=== PATIENT | male | born 1980 | race Caucasian/White ===

== ENCOUNTER 2017-03-23 10:30 | Outpatient (CLI) | payer OTHER ==
--- NOTE | 2017-03-23 17:03 | XRAY Report ---
TWO VIEW CHEST: 03/23/2017 CLINICAL INDICATION: Wheezing. Frontal and lateral views of the chest demonstrate a normal cardiac silhouette. The lungs are clear. No effusion or pneumothorax is present. IMPRESSION: NORMAL CHEST. JOB #: [id number] EXT JOB #:[id number]
== END 2017-03-23 10:31 | disposition home or self-care (01) ==
LOC: DI 10:30
PROVIDERS: ATTEND Internal Medicine
DX: I10 Essential (primary) hypertension (principal); R06.2 Wheezing
CPT/HCPCS: 71020

== ENCOUNTER 2017-05-06 10:34 | Outpatient (CLI) | payer OTHER | END 2017-05-06 10:35 | disposition home or self-care (01) | LOC: NS 10:34 | PROVIDERS: ATTEND Internal Medicine | DX: Z71.3 Dietary counseling and surveillance (principal); E11.9 Type 2 diabetes mellitus without complications; Z79.84 Long term (current) use of oral hypoglycemic drugs; E78.1 Pure hyperglyceridemia; Z68.31 Body mass index [BMI] 31.0-31.9, adult | CPT/HCPCS: 97802 ==

== ENCOUNTER 2021-07-07 15:40 | Outpatient (CLI) | payer SELFPAY | END 2021-07-07 15:41 | disposition home or self-care (01) | LOC: DI.N 15:40 | PROVIDERS: ATTEND Physician Assistant | DX: Z53.9 Procedure and treatment not carried out, unspecified reason (principal) ==

== ENCOUNTER 2021-07-07 15:59 | Outpatient (CLI) | payer SELFPAY ==
--- NOTE | 2021-07-07 17:10 | XRAY Report ---
PROCEDURE: Wrist 3 View RT INDICATIONS: R WRIST PX TECHNIQUE: 3 views of the wrist were acquired. COMPARISON: None FINDINGS: Bones: No fractures or dislocations. No suspicious bony lesions. Soft tissues: No suspicious soft tissue calcifications. IMPRESSION: No fracture. No osseous lesion. If there are persistent symptoms or continued clinical concern for pa thology, then repeat plain film radiographs (7-10 days) or advanced imaging (CT, MR, bone scan) shoul d be considered for further evaluation. Reviewed by: Marisol Basurto MD, PhD on 07/07/2021 5:09 PM PST Approved by: Marisol Basurto MD, PhD on 07/07/2021 5:09 PM PST Station ID: [id number]
== END 2021-07-07 23:59 | disposition home or self-care (01) ==
LOC: DI.N 15:59
PROVIDERS: ATTEND Physician Assistant
DX: S69.91XA Unspecified injury of right wrist, hand and finger(s), initial encounter (principal)